=== PATIENT | male | born 1965 | race Caucasian/White ===

== ENCOUNTER 2017-10-20 05:00 | Emergency (ER) | payer SELFPAY ==
[~2017-10-20] VITALS: Ht 180.3 cm; Wt 101.0 kg
[~2017-10-20 05:00] MED LIST: AZIT250T3 PO; BENZ100 PO; DICL50 PO; GLUCTAB PO; HYDR10TA16 PO; MELO15TA20 PO; METF1000 PO; NOVO7030P2 SQ; PEN29MIS SQ; TRAM50 PO
[2017-10-20 05:05] VITALS: BP 123/68; PULSE 87; RESP 16; TEMP 99.2; O2SAT 96
== END 2017-10-20 06:35 | disposition left against medical advice (07) ==
LOC: NED 05:00
DX: R19.7 Diarrhea, unspecified (principal); Z53.21 Procedure and treatment not carried out due to patient leaving prior to being seen by health care provider
CPT/HCPCS: 99281

== ENCOUNTER 2017-11-07 08:02 | Emergency (ER) | payer SELFPAY ==
[~2017-11-07] VITALS: Ht 177.8 cm; Wt 100.0 kg
[2017-11-07 08:06] VITALS: BP 150/85; PULSE 82; RESP 16; TEMP 98.2; O2SAT 97
[2017-11-07] MEDS ORDERED: METF1000 PO (08:26)
[2017-11-07] MEDS ORDERED: NOVORP2 SQ (08:26)
[2017-11-07] MEDS ORDERED: ZANT300T PO (08:26)
[2017-11-07] MEDS ORDERED: SODIUM CHLOR 0.9% 1000 ML INJ 1,000 ML IV ONE ×3 (09:00→11:45)
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
[2017-11-07 09:11] VITALS: RESP 16; O2SAT 95
[2017-11-07 09:36] LABS: BASOPHIL % 0.9 % (0.0-2.0); EOSINOPHIL # 0.1 TH/MM3 (0-0.4); EOSINOPHIL % 1.9 % (0.0-4.0); HEMATOCRIT 38.5 % (39.0-51.0); HEMOGLOBIN 13.5 GM/DL (13.0-17.0); LYMPH % 25.2 % (9.0-44.0); LYMPHOCYTE # 1.3 TH/MM3 (1.0-4.8); MEAN CELL VOLUME 95.7 FL (80.0-100.0); MEAN CORPUSCULAR HEMOGLOBIN 33.5 PG (27.0-34.0); MEAN CORPUSCULAR HGB CONC 34.9 % (32.0-36.0); MEAN PLATELET VOLUME 7.7 FL (7.0-11.0); MONO % 11.4 % (0.0-8.0); MONOCYTE # 0.6 TH/MM3 (0-0.9); NEUT % 60.6 % (16.0-70.0); PLATELET COUNT 208 TH/MM3 (150-450); RED BLOOD COUNT 4.02 MIL/MM3 (4.50-5.90); RED CELL DISTRIBUTION WIDTH 12.8 % (11.6-17.2)
--- NOTE | 2017-11-07 09:50 | RADRPT ---
EXAM DATE/TIME: 11/07/2017 09:07 [facility] COMPARISON: CHEST PA & LAT, September 14, 2017, 12:15. INDICATIONS : Chest pain with shortness of breath, MEDICAL HISTORY : None. SURGICAL HISTORY : None. ENCOUNTER: Initial ACUITY: 1 day PAIN SCORE: 5/10 LOCATION: Bilateral chest FINDINGS: A single view of the chest demonstrates the lungs to be symmetrically aerated without evidence of mas s, infiltrate or effusion. The cardiomediastinal contours are unremarkable. Osseous structures are intact. CONCLUSION: No acute disease. Demian Owusu MD on November 07, 2017 at 9:29 Board Certified Radiologist. This report was verified electronically.
[2017-11-07 09:56] LABS: ALBUMIN 3.1 GM/DL (3.4-5.0); AST (GOT) 35 U/L (15-37); BICARBONATE 20.5 MEQ/L (21.0-32.0); BLOOD UREA NITROGEN 20 MG/DL (7-18); CALCIUM 8.2 MG/DL (8.5-10.1); CHLORIDE 111 MEQ/L (98-107); CREATININE 1.17 MG/DL (0.60-1.30); GLOMERULAR FILTRATION RATE 65 ML/MIN (>89); GLUCOSE,RANDOM 149 MG/DL (74-106); SODIUM (NA) 138 MEQ/L (136-145)
[2017-11-07 09:57] LABS: ALT (GPT) 33 U/L (12-78)
[2017-11-07 09:59] LABS: ALKALINE PHOSPHATASE 51 U/L (45-117); TOTAL BILIRUBIN ADULT 0.7 MG/DL (0.2-1.0); TOTAL PROTEIN 6.8 GM/DL (6.4-8.2)
[2017-11-07 10:43] LABS: BILIRUBIN, URINE NEG (NEG); BLOOD, URINE NEG (NEG); GLUCOSE,URINE NEG (NEG); KETONE, URINE NEG (NEG); MUCUS URINE FEW /lpf (OCC); NITRITE,URINE NEG (NEG); PH, URINE 5.5 (5.0-8.5); SQUAMOUS EPITHELIAL CELL URINE <1 /hpf (0-5); URINE COLOR YELLOW (YELLW/STRAW); URINE LEUKOCYTE ESTERASE NEG (NEG)
[2017-11-07] MEDS ORDERED: DIPHENOXYLATE/ATROPINE 2.5 MG/0.025 MG TAB PO ONE (11:45)
[2017-11-07] MEDS ORDERED: LOMO2.5T PO (12:56)
[2017-11-07 13:06] VITALS: BP 118/76; PULSE 72; RESP 16; O2SAT 96
--- NOTE | 2017-11-08 13:59 | EKG ---
Date Performed: 11/07/2017 Time Performed: 09:13:51 PTAGE: 52 years EKG: Sinus rhythm WITH SINUS ARRHYTHMIA NORMAL ECG NO PREVIOUS TRACING DOCTOR: Jaguar Aguilera Interpretating Date/Time 11/08/2017 13:57:48
== END 2017-11-07 13:24 | disposition home or self-care (01) ==
LOC: NEPE 08:02
DX: R19.7 Diarrhea, unspecified (principal); E11.9 Type 2 diabetes mellitus without complications; Z79.4 Long term (current) use of insulin
CPT/HCPCS: 71045; 80053; 80307; 81001; 85025; 87493; 87506; 93005; 96360; 96361; 99285; J7030

== ENCOUNTER 2018-01-26 00:14 | Emergency (ER) | payer OTHER ==
[~2018-01-26] VITALS: Ht 175.3 cm; Wt 95.0 kg
[~2018-01-26 00:14] MED LIST changes: -AZIT250T3 PO; -BENZ100 PO; -DICL50 PO; -GLUCTAB PO; -HYDR10TA16 PO; +LOMO2.5T PO; -MELO15TA20 PO; +NOVORP2 SQ; -PEN29MIS SQ; -TRAM50 PO; +ZANT300T PO
[2018-01-26 00:25] VITALS: BP 99/58; PULSE 91; RESP 16; TEMP 98.4; O2SAT 96
[2018-01-26 01:06] LABS: AUTOMATED NEUTROPHIL # 4.6 TH/MM3 (1.8-7.7); BASOPHIL % 0.5 % (0.0-2.0); EOSINOPHIL # 0.1 TH/MM3 (0-0.4); EOSINOPHIL % 1.6 % (0.0-4.0); HEMATOCRIT 38.8 % (39.0-51.0); HEMOGLOBIN 13.5 GM/DL (13.0-17.0); LYMPH % 23.5 % (9.0-44.0); LYMPHOCYTE # 1.6 TH/MM3 (1.0-4.8); MEAN CELL VOLUME 95.5 FL (80.0-100.0); MEAN CORPUSCULAR HEMOGLOBIN 33.4 PG (27.0-34.0); MEAN PLATELET VOLUME 7.1 FL (7.0-11.0); MONO % 5.9 % (0.0-8.0); MONOCYTE # 0.4 TH/MM3 (0-0.9); NEUT % 68.5 % (16.0-70.0); PLATELET COUNT 157 TH/MM3 (150-450); RED BLOOD COUNT 4.06 MIL/MM3 (4.50-5.90); RED CELL DISTRIBUTION WIDTH 13.5 % (11.6-17.2); WHITE BLOOD COUNT 6.8 TH/MM3 (4.0-11.0)
[2018-01-26 01:37] LABS: ALBUMIN 3.4 GM/DL (3.4-5.0); ALT (GPT) 41 U/L (12-78); AST (GOT) 42 U/L (15-37); BICARBONATE 21.7 MEQ/L (21.0-32.0); BLOOD UREA NITROGEN 11 MG/DL (7-18); CALCIUM 8.2 MG/DL (8.5-10.1); CHLORIDE 105 MEQ/L (98-107); CREATININE 0.94 MG/DL (0.60-1.30); GLOMERULAR FILTRATION RATE 84 ML/MIN (>89); GLUCOSE,RANDOM 99 MG/DL (74-106); SODIUM (NA) 139 MEQ/L (136-145)
[2018-01-26 01:41] LABS: ALKALINE PHOSPHATASE 79 U/L (45-117); TOTAL BILIRUBIN ADULT 0.5 MG/DL (0.2-1.0); TOTAL PROTEIN 7.2 GM/DL (6.4-8.2); TROPONIN I LESS THAN 0.02 NG/ML (0.02-0.05)
[2018-01-26 04:15] VITALS: BP 140/86; PULSE 89; RESP 16; O2SAT 98
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
--- NOTE | 2018-01-26 23:01 | EKG ---
Date Performed: 01/26/2018 Time Performed: 01:04:01 PTAGE: 52 years EKG: Sinus rhythm WITH OCCASIONAL SUPRAVENTRICULAR PREMATURE COMPLEXES POSSIBLE LEFT ATRIAL ENLARGEMENT SEPTAL MYOCARD IAL INFARCTION ABNORMAL ECG PREVIOUS TRACING : 11/07/2017 09.13 DOCTOR: Delmi Thomson Interpretating Date/Time 01/26/2018 22:54:52
== END 2018-01-26 06:22 | disposition home or self-care (01) ==
LOC: NEPE 00:14
DX: F10.129 Alcohol abuse with intoxication, unspecified (principal); Y90.8 Blood alcohol level of 240 mg/100 ml or more; R94.31 Abnormal electrocardiogram [ECG] [EKG]; E11.9 Type 2 diabetes mellitus without complications; Z72.0 Tobacco use; Z79.84 Long term (current) use of oral hypoglycemic drugs; Z79.4 Long term (current) use of insulin; Z79.899 Other long term (current) drug therapy
CPT/HCPCS: 80053; 80307; 84484; 85025; 93005; 99284

== ENCOUNTER 2018-01-26 12:57 | Emergency (ER) | payer SELFPAY ==
[~2018-01-26] VITALS: Ht 188 cm; Wt 100.0 kg
[2018-01-26 13:16] VITALS: BP 146/81; PULSE 113; RESP 20; TEMP 98.7; O2SAT 96
[2018-01-26 14:05] LABS: AUTOMATED NEUTROPHIL # 5.6 TH/MM3 (1.8-7.7); BASOPHIL # 0.1 TH/MM3 (0-0.2); BASOPHIL % 0.8 % (0.0-2.0); EOSINOPHIL # 0.1 TH/MM3 (0-0.4); EOSINOPHIL % 1.5 % (0.0-4.0); HEMOGLOBIN 14.5 GM/DL (13.0-17.0); LYMPH % 23.8 % (9.0-44.0); LYMPHOCYTE # 1.9 TH/MM3 (1.0-4.8); MEAN CELL VOLUME 95.8 FL (80.0-100.0); MEAN CORPUSCULAR HEMOGLOBIN 33.1 PG (27.0-34.0); MEAN CORPUSCULAR HGB CONC 34.6 % (32.0-36.0); MEAN PLATELET VOLUME 7.3 FL (7.0-11.0); MONO % 5.1 % (0.0-8.0); MONOCYTE # 0.4 TH/MM3 (0-0.9); NEUT % 68.8 % (16.0-70.0); PLATELET COUNT 191 TH/MM3 (150-450); RED BLOOD COUNT 4.39 MIL/MM3 (4.50-5.90); RED CELL DISTRIBUTION WIDTH 13.4 % (11.6-17.2); WHITE BLOOD COUNT 8.2 TH/MM3 (4.0-11.0)
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
[2018-01-26 14:20] LABS: ALBUMIN 3.7 GM/DL (3.4-5.0); ALT (GPT) 45 U/L (12-78); AST (GOT) 54 U/L (15-37); BICARBONATE 20.2 MEQ/L (21.0-32.0); BLOOD UREA NITROGEN 11 MG/DL (7-18); CALCIUM 8.5 MG/DL (8.5-10.1); CHLORIDE 105 MEQ/L (98-107); CREATININE 1.03 MG/DL (0.60-1.30); GLOMERULAR FILTRATION RATE 76 ML/MIN (>89); GLUCOSE,RANDOM 99 MG/DL (74-106); SODIUM (NA) 138 MEQ/L (136-145)
[2018-01-26 14:29] LABS: ALKALINE PHOSPHATASE 85 U/L (45-117); TOTAL BILIRUBIN ADULT 0.8 MG/DL (0.2-1.0); TOTAL PROTEIN 7.8 GM/DL (6.4-8.2)
[2018-01-26 16:50] VITALS: RESP 20; O2SAT 89
[2018-01-26 16:52] VITALS: BP 161/79; PULSE 100; RESP 20; O2SAT 98
[2018-01-26 18:47] VITALS: BP 141/66; PULSE 90; RESP 20; O2SAT 98
[2018-01-26 20:07] VITALS: BP 155/74; PULSE 87; RESP 18; O2SAT 97
[2018-01-26 20:30] VITALS: BP 154/72; PULSE 90; RESP 18; O2SAT 97
--- NOTE | 2018-01-27 05:44 | PD ---
Data Data Last Documented VS Vital Signs Date Time Temp Pulse Resp B/P (MAP) Pulse Ox O2 Delivery O2 Flow Rate FiO2 01/26/18 20:30 90 18 154/72 (99) 97 Nasal Cannula 2.00 01/26/18 13:16 98.7 Orders Orders Complete Blood Count With Diff (01/26/18 13:35) Comprehensive Metabolic Panel (01/26/18 13:35) Thyroid Stimulating Hormone (01/26/18 13:35) Psych Screen (01/26/18 13:35) Drug Screen, Random Urine (01/26/18 13:35) Restraints Violent (01/26/18 13:35) Urinary Catheter Insert/Apply (01/26/18 13:35) Alcohol (Ethanol) (01/26/18 15:49) Electrocardiogram (01/26/18 13:25) Electrocardiogram (01/26/18 17:23) Ed Discharge Order (01/27/18 00:23) Labs Laboratory Tests Test 01/26/18 13:45 White Blood Count 8.2 TH/MM3 Red Blood Count 4.39 MIL/MM3 Hemoglobin 14.5 GM/DL Hematocrit 42.0 % Mean Corpuscular Volume 95.8 FL Mean Corpuscular Hemoglobin 33.1 PG Mean Corpuscular Hemoglobin Concent 34.6 % Red Cell Distribution Width 13.4 % Platelet Count 191 TH/MM3 Mean Platelet Volume 7.3 FL Neutrophils (%) (Auto) 68.8 % Lymphocytes (%) (Auto) 23.8 % Monocytes (%) (Auto) 5.1 % Eosinophils (%) (Auto) 1.5 % Basophils (%) (Auto) 0.8 % Neutrophils # (Auto) 5.6 TH/MM3 Lymphocytes # (Auto) 1.9 TH/MM3 Monocytes # (Auto) 0.4 TH/MM3 Eosinophils # (Auto) 0.1 TH/MM3 Basophils # (Auto) 0.1 TH/MM3 CBC Comment DIFF FINAL Differential Comment Blood Urea Nitrogen 11 MG/DL Creatinine 1.03 MG/DL Random Glucose 99 MG/DL Total Protein 7.8 GM/DL Albumin 3.7 GM/DL Calcium Level 8.5 MG/DL Alkaline Phosphatase 85 U/L Aspartate Amino Transf (AST/SGOT) 54 U/L Alanine Aminotransferase (ALT/SGPT) 45 U/L Total Bilirubin 0.8 MG/DL Sodium Level 138 MEQ/L Potassium Level 4.1 MEQ/L Chloride Level 105 MEQ/L Carbon Dioxide Level 20.2 MEQ/L Anion Gap 13 MEQ/L Estimat Glomerular Filtration Rate 76 ML/MIN Thyroid Stimulating Hormone 3rd Gen 2.040 uIU/ML Urine Opiates Screen NEG Urine Barbiturates Screen NEG Urine Amphetamines Screen NEG Urine Benzodiazepines Screen NEG Urine Cocaine Screen NEG Urine Cannabinoids Screen NEG Ethyl Alcohol Level 323 MG/DL MDM Medical Record Reviewed: Yes Supervised Visit with YURY: No Narrative Course See previous providers notes. This patient is wholly sober. Stable for discharge. Diagnosis Primary Impression: Alcohol abuse Med/Other Pt SpecificInfo: No Change to Meds Disposition: 01 DISCHARGE HOME Condition: Stable Luiz Haskins Jan 27, 2018 05:44
--- NOTE | 2018-01-27 17:13 | EKG ---
Date Performed: 01/26/2018 Time Performed: 13:25:12 PTAGE: 52 years EKG: SINUS TACHYCARDIA WITH OCCASIONAL VENTRICULAR PREMATURE COMPLEXES WITH FREQUENT SUPRAVENTRI CULAR PREMATURE COMPLEXES ABNORMAL RHYTHM ECG PREVIOUS TRACING 01/26/2018 @ 13.04 Since the previous tracing, no significant change noted DOCTOR: Iris Arguelles Interpretating Date/Time 01/27/2018 17:12:51
--- NOTE | 2018-01-27 17:15 | EKG ---
Date Performed: 01/26/2018 Time Performed: 17:23:46 PTAGE: 52 years EKG: Sinus rhythm NORMAL ECG PREVIOUS TRACING : 01/26/2018 13.25 Since the previous tracing, no significant change noted DOCTOR: Iris Arguelles Interpretating Date/Time 01/28/2018 07:49:19
--- NOTE | 2018-01-27 17:15 | EKG ---
Date Performed: 01/26/2018 Time Performed: 21:12:51 PTAGE: 52 years EKG: Sinus rhythm WITH OCCASIONAL ECTOPIC PREMATURE COMPLEXES BORDERLINE ECG PREVIOUS TRACING : 01/26/2018 21.12 Since the previous tracing, no significant change noted DOCTOR: Iris Arguelles Interpretating Date/Time 01/27/2018 17:13:31
== END 2018-01-27 05:58 | disposition home or self-care (01) ==
LOC: NEPD 12:57
DX: F10.129 Alcohol abuse with intoxication, unspecified (principal); F15.90 Other stimulant use, unspecified, uncomplicated; R00.0 Tachycardia, unspecified; R94.31 Abnormal electrocardiogram [ECG] [EKG]; Y90.8 Blood alcohol level of 240 mg/100 ml or more; E11.9 Type 2 diabetes mellitus without complications; Z72.0 Tobacco use; Z79.84 Long term (current) use of oral hypoglycemic drugs; Z79.4 Long term (current) use of insulin; Z79.899 Other long term (current) drug therapy
CPT/HCPCS: 51702; 80053; 80307; 84443; 85025; 93005